=== PATIENT | male | born 1970 | race Caucasian/White ===

== ENCOUNTER 2017-03-10 22:24 | Emergency (ER) | payer OTHER ==
--- NOTE | 2017-03-10 22:46 | EDPHY ---
H & P Stated Complaint: CHEST PAIN FOR PAST 2-3 DAYS WORSE TONIGHT, ANXIETY Time Seen by Provider: 03/10/17 22:40 HPI/ROS: Chief Complaint: Anxious, chest tightness HPI: A 46-year-old male with a history of anxiety and depression is presenting with 3 days of worsening chest tightness and anxiety. Patient states that similar episodes gout in the past. He has been on an SSRI in the past, however this was prescribed him from his doctors in [place] and he has not been taking it since June. Patient is describing since a general anxiety and tightness in center of his chest but at worst is about a 7/10. There are no aggravating or alleviating factors. It is nonradiating. No shortness of breath. No palpitations. He does not have a family history of coronary artery disease. He is not a smoker. 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 No other new stressors in his life. He is having some mild depression. Is not suicidal. He is not homicidal. He has not been hallucinating.. He is antony for safety. ROS: 10 point Review of Systems is negative except as noted in the HPI. PMH: Anxiety and depression Social History: No smoking, occasional alcohol, no recreational drug use Family History: non-contributory Physical Exam: Gen: Awake, Alert, No Distress HEENT: Nose: no rhinorrhea Eyes: PERRLA, EOMI Mouth: Moist mucosa Neck: Supple, no JVD Chest: nontender, lungs clear to auscultation Heart: S1, S2 normal, no murmur Abd: Soft, non-tender, no guarding Back: no CVA tenderness, no midline tenderness Ext: no edema, non-tender Skin: no rash Neuro: CN II-XII intact, Sensation grossly intact, Strength 5/5 in bilateral upper and lower extremities - Personal History Current Tetanus/Diphtheria Vaccine: No Current Tetanus Diphtheria and Acellular Pertussis (TDAP): No - Medical/Surgical History Hx Asthma: No Hx Chronic Respiratory Disease: No Hx Diabetes: No Hx Cardiac Disease: No Hx Renal Disease: No Hx Cirrhosis: No Hx Alcoholism: No Hx HIV/AIDS: No Hx Splenectomy or Spleen Trauma: No Other PMH: ANXIETY DEPRESSION - Social History Smoking Status: Never smoked Constitutional: Initial Vital Signs Temperature (C) 36.7 C 03/10/17 22:27 Heart Rate 91 01/19/18 22:27 Respiratory Rate 18 03/10/17 22:27 Blood Pressure 129/74 H 03/10/17 22:27 O2 Sat (%) 96 03/10/17 22:27 O2 Delivery Mode Room Air Allergies/Adverse Reactions: No Known Allergies Allergy (Unverified 03/10/17 22:30) Home Medications: Medication Instructions Recorded Paroxat 03/10/17 Medical Decision Making - Diagnostics EKG Interpretation: ECG time 11:43 p.m., sinus rhythm with a rate of 69, normal axis, normal intervals, no acute ST or T-wave changes. Impression: Normal ECG. ED Course/Re-evaluation: ECG is normal. Troponin is negative. Patient is improved after Ativan. Symptoms are consistent with anxiety reaction. There is no evidence of acute coronary syndrome at this time. Will discharge with an Ativan prepack. Will refer him to outpatient follow-up for possibly restarting on a SSRI. - Data Points Laboratory Results: Laboratory Results 03/10/17 22:55 03/10/17 22:55 03/10/17 03/10/17 22:55 22:55 WBC 8.35 10^3/uL 10^3/uL (3.80-9.50) RBC 5.43 10^6/uL 10^6/uL (4.40-6.38) Hgb 15.1 g/dL g/dL (13.7-17.5) Hct 43.6 % % (40.0-51.0) MCV 80.3 fL L fL (81.5-99.8) MCH 27.8 pg L pg (27.9-34.1) MCHC 34.6 g/dL g/dL (32.4-36.7) RDW 12.7 % % (11.5-15.2) Plt Count 381 10^3/uL 10^3/uL (150-400) MPV 9.6 fL fL (8.7-11.7) Neut % (Auto) 53.5 % % (39.3-74.2) Lymph % (Auto) 31.1 % % (15.0-45.0) Jackson % (Auto) 12.5 % % (4.5-13.0) Eos % (Auto) 1.6 % % (0.6-7.6) Baso % (Auto) 1.1 % % (0.3-1.7) Nucleat RBC Rel Count 0.0 % % (0.0-0.2) Absolute Neuts (auto) 4.47 10^3/uL 10^3/uL (1.70-6.50) Absolute Lymphs (auto) 2.60 10^3/uL 10^3/uL (1.00-3.00) Absolute Monos (auto) 1.04 10^3/uL H 10^3/uL (0.30-0.80) Absolute Eos (auto) 0.13 10^3/uL 10^3/uL (0.03-0.40) Absolute Basos (auto) 0.09 10^3/uL 10^3/uL (0.02-0.10) Absolute Nucleated RBC 0.00 10^3/uL 10^3/uL (0-0.01) Immature Gran % 0.2 % % (0.0-1.1) Immature Gran # 0.02 10^3/uL 10^3/uL (0.00-0.10) Sodium 139 mEq/L mEq/L (135-145) Potassium 4.1 mEq/L mEq/L (3.5-5.2) Chloride 100 mEq/L mEq/L (97-110) Carbon Dioxide 25 mEq/l mEq/l (22-31) Anion Gap 14 mEq/L mEq/L (8-16) BUN 15 mg/dL mg/dL (7-23) Creatinine 0.9 mg/dL mg/dL (0.7-1.3) Estimated GFR > 60 Glucose 92 mg/dL mg/dL (70-100) Calcium 9.8 mg/dL mg/dL (8.5-10.4) Troponin I < 0.012 ng/mL ng/mL (0.000-0.034) Medications Given: Discontinued Medications Lorazepam (Ativan) 1 mg PO EDNOW ONE Stop: 03/10/17 23:43 Last Admin: 03/10/17 23:48 Dose: 1 mg Departure - Departure Disposition: Home, Routine, Self-Care Clinical Impression: Chest pain, Anxiety Condition: Good Instructions: Anxiety (ED), Lorazepam (By mouth) Additional Instructions: Follow up with the referral primary care physician in 2-3 days for further care. Return emergency depart for worsening chest pain, shortness of breath, fainting , worsening depression, or any other concerns. Referrals: Jossie Ramires MD [Medical Doctor] - As per Instructions
[2017-03-10 23:04] LABS: PLATELET COUNT 381 10^3/uL (150-400)
[2017-03-10] MEDS ORDERED: LORazepam 1 MG TAB PO ONE (23:42)
[2017-03-11] MEDS ORDERED: LORAZEPAM 1 MG PREPACK#4 BTL TAKEHOME ONE (00:08)
[2017-03-11 00:28] VITALS: BP 132/75; PULSE 77; RESP 16; TEMP 98.2; O2SAT 97
--- NOTE | 2017-03-12 05:12 | CPEKG ---
Heart Rate: 82 RR Interval: 732 P-R Interval: 152 QRSD Interval: 130 QT Interval: 436 QTC Interval: 510 P Singer: 56 QRS Singer: -25 T Wave Singer: 143 EKG Severity - ABNORMAL ECG - EKG Impression: SINUS RHYTHM EKG Impression: PROBABLE LEFT ATRIAL ABNORMALITY EKG Impression: LEFT BUNDLE BRANCH BLOCK Electronically Signed By: Dewayne Jung 13-Mar-2017 06:10:48
== END 2017-03-11 00:27 | disposition home or self-care (01) ==
DX: R07.89 Other chest pain (principal); F41.9 Anxiety disorder, unspecified